=== PATIENT | female | born 1945 | race Caucasian/White ===

== ENCOUNTER 2017-10-03 07:50 | Day surgery (SDC) | payer OTHER, BC ==
[2017-09-30 13:50] VITALS: BMI 22.3
[2017-10-03 09:28] VITALS: TEMP 97.3
[2017-10-03] MEDS ORDERED: PROPOFOL 20 ML ONE ×5 (09:29)
[2017-10-03] MEDS ORDERED: LIDOCAINE HCL/PF 2% SDV 5ML VIAL ONE (09:29)
[2017-10-03 10:40] VITALS: BP 141/67; PULSE 66
--- NOTE | 2017-10-04 12:09 | PATH ---
Surgical Pathology Report Patient Name: VALORIE QUIROZ [facility]. Rec. #: [id number] /Age/Gender: 1945 (Age: 71) / F Account: [id number] Location: [facility]-ENDOSCOPY Taken: 10/03/2017 Received: 10/03/2017 Reported: 10/04/2017 Physicians: Coni Henderson M.D. Specimen(s) Received A: POLYP RIGHT COLON B: BX SIGMOID POLYP Clinical History Adenoma surveillance Postoperative diagnosis: Colon polyps (right colon and sigmoid colon), diverticulosis Final Diagnosis A. COLON, RIGHT, POLYP, BIOPSY: TUBULAR ADENOMA. B. SIGMOID COLON, POLYP, BIOPSY: POLYPOID COLONIC MUCOSA WITH SMALL LYMPHOID AGGREGATE AND FOCAL SUPERFICIAL HYPERPLASTIC FEATURES. Electronically Signed Mary Urbie M.D. Gross Description A. Received in formalin, labeled "polyp right colon" is a brizuela, irregular portion of soft tissue measuring 0.4 cm. in greatest dimension. The specimen is submitted in toto in one cassette. B. Received in formalin, labeled "biopsy sigmoid polyp" is a brizuela, irregular portion of soft tissue measuring 0.3 cm. in greatest dimension. The specimen is submitted in toto in one cassette. 10/03/2017 saudi10/03/2017
== END 2017-10-03 10:35 | disposition home or self-care (01) ==
LOC: JASU-ENDO 07:50
PROVIDERS: ATTEND Internal Medicine Gastroenterology
PROC: 0DBN8ZX Excision of Sigmoid Colon, Via Natural or Artificial Opening Endoscopic, Diagnostic (ICD-10-PCS; 2017-10-03)
PROC: 0DBK8ZX Excision of Ascending Colon, Via Natural or Artificial Opening Endoscopic, Diagnostic (ICD-10-PCS; principal; 2017-10-03 09:00)
DX: Z12.11 Encounter for screening for malignant neoplasm of colon (principal); Z86.010 Personal history of colon polyps; D12.2 Benign neoplasm of ascending colon; D12.5 Benign neoplasm of sigmoid colon; K64.8 Other hemorrhoids; K57.30 Diverticulosis of large intestine without perforation or abscess without bleeding
CPT/HCPCS: 88305-TC

== ENCOUNTER 2021-02-25 04:50 | Day surgery (SDC) | payer OTHER, BC ==
[2021-02-23 16:43] VITALS: BMI 21.9
[2021-02-25 11:24] VITALS: BP 123/91; PULSE 58; TEMP 98
== END 2021-02-25 11:24 | disposition home or self-care (01) ==
LOC: JASU-ENDO 04:50
PROVIDERS: ATTEND Internal Medicine Gastroenterology
PROC: 0DBL8ZX Excision of Transverse Colon, Via Natural or Artificial Opening Endoscopic, Diagnostic (ICD-10-PCS; principal; 2021-02-25 09:00)
DX: K63.5 Polyp of colon (principal); K57.30 Diverticulosis of large intestine without perforation or abscess without bleeding; K57.31 Diverticulosis of large intestine without perforation or abscess with bleeding; K59.89 Other specified functional intestinal disorders; Z86.010 Personal history of colon polyps; Z80.0 Family history of malignant neoplasm of digestive organs; I10 Essential (primary) hypertension
CPT/HCPCS: 88305-TC

== ENCOUNTER 2024-05-04 04:39 | Day surgery (SDC) | payer OTHER, BC ==
[2024-04-25 14:57] VITALS: BMI 21.5
[2024-05-04 08:47] VITALS: TEMP 97.4
[2024-05-04 09:20] VITALS: BP 133/81; PULSE 63; RESP 16
== END 2024-05-04 09:40 | disposition home or self-care (01) ==
LOC: JASU-ENDO 04:39
PROVIDERS: ATTEND Internal Medicine Gastroenterology
PROC: 0DBN8ZX Excision of Sigmoid Colon, Via Natural or Artificial Opening Endoscopic, Diagnostic (ICD-10-PCS; principal; 2024-05-04 08:00)
DX: Z12.11 Encounter for screening for malignant neoplasm of colon (principal); K63.5 Polyp of colon; K64.4 Residual hemorrhoidal skin tags; K57.30 Diverticulosis of large intestine without perforation or abscess without bleeding; Z86.0100 Personal history of colon polyps, unspecified; Z80.0 Family history of malignant neoplasm of digestive organs
CPT/HCPCS: 88305-TC